=== PATIENT | female | born 1990 | race African-American/Black ===

== ENCOUNTER 2024-12-29 08:21 | Outpatient (AMB) | payer OTHER, SELFPAY ==
--- OUTSIDE RECORDS SUMMARY | 2024-12-29 09:04 | XMS_ITS | Clinical Summary ---
Author Organization 175 [facility] Address 175 [place] [address] Phone Care Team Providers Care Grainer Machine Name Role Phone Tariq Rodriguez MD Primary Care Provider Allergies Active Allergy Reactions Criticality Noted Date Comments Penicillin Anaphylaxis High 10/29/2024 Medications benzonatate (TESSALON) 100 mg capsuleIndicat ions:Acute cough Take 1 capsule (100 mg total) by mouth 3 (three) times a day if needed for cough. Do not crush or chew. 42 capsule 1 5 Active fluticasone propionate (FLONASE) 50 mcg/actuation nasal sprayIndicatio ns:Nasal congestion Administer 2 sprays into each nostril 1 (one) time each day. Shake gently. Before first use, prime pump. After use, clean tip and replace cap. 16 g 5 5 11/09/19 26 Active cetirizine (ZyrTEC) 10 mg tabletIndicati ons:Seasonal allergies Take 1 tablet (10 mg total) by mouth 1 (one) time each day. 30 each 2 5 02/07/20 25 Active nicotine (NICODERM CQ) 14 mg/[address]: Tobacco dependency Place 1 patch on the skin 1 (one) time each day at the same time. 30 each 5 01/07/20 25 Active nicotine polacrilex (COMMIT) 4 mg lozengeIndicat ions:Tobacco dependency Dissolve 1 lozenge (4 mg total) in the mouth every 2 (two) hours if needed for smoking cessation. 30 lozenge 1 5 01/07/20 Active nicotine (NICODERM CQ) 14 mg/[address]: Tobacco dependency Place 1 patch on the skin 1 (one) time each day at the same time. 30 each 2 5 12/08/19 25 Discontinu ed(Duplica te order) nicotine polacrilex (NICORETTE) 4 mg gumIndications :Tobacco dependency Place 1 each (4 mg total) into mouth between cheek and gum if needed for smoking cessation. Place 1 piece of gum (4MG) into mouth and chew as needed for smoking cessation up to 4 times daily 100 each 3 5 12/08/19 Discontinu ed(Duplica te order) Active Problems Problem Noted Date Diagnosed Date Umbilical hernia without obstruction and without gangrene 11/04/2024 History of pulmonary embolus (PE) 10/29/2024 Class 3 severe obesity due t o excess calories without serious comorbidity with body mass index (BMI) of 60.0 to 69.9 in adult ([facility] V24, [facility] V28) 10/29/2024 Hidradenitis suppurativa 10/29/2024 Encounters Date Type Department Care Team Description 12/07/2024 3:45 PM EDT Office Visit Internal Medicine [facility] 175 [facility] [address] [place] [address] Tariq Rodriguez MD Cough, unspecified type (Primary Dx); Smoking greater than 10 pack years; Tobacco dependency; Class 3 severe obesity due to excess calories without serious comorbidity with body mass index (BMI) of 60.0 to 69.9 in adult ([facility] V24, [facility] V28) 11/23/2024 Telephone General Surgery [facility] 175 [facility] [address] [place] [address] Neftaly Emery MD 11/23/2024 Telephone General Surgery [facility] 175 [facility] [address] [place] [phone] Neftaly Emery MD 11/10/2024 Telephone General Surgery [facility] 175 [facility] [address] [place] [address] Neftaly Emery MD 11/08/2024 10:00 AM EDT Office Visit Internal Medicine - [place] 175 [facility] [address] [place] [address] Barry Ayala NP Bronchitis (Primary Dx); Nasal congestion; Acute cough; Tobacco dependency; Seasonal allergies 11/04/2024 11:30 AM EDT Consult General Surgery - [place] [address] [facility] [address] [place] [address] Neftaly Emery MD Umbilical hernia without obstruction and without gangrene (Primary Dx); Central obesity; Tobacco use 10/29/2024 8:30 AM EDT Office Visit Internal Medicine [facility] 175 [facility] [address] [place] [phone] Tariq Rodriguez MD Adult general medical examination (Primary Dx); Other abnormal glucose; Other fatigue; Vitamin D deficiency; Encounter for lipid screening for cardiovascular disease; Class 3 severe obesity due to excess calories without serious comorbidity with body mass index (BMI) of 60.0 to 69.9 in adult (CMS/HCC V24, [facility] V28); History of pulmonary embolus (PE); Hidradenitis suppurativa; Tobacco dependency; Umbilical hernia without obstruction and without gangrene; Prediabetes from Last 3 Months Surgical History Surgery Date Site/Laterality Comments EYE SURGERY PROCEDURE: HISTORICAL EYE SURGERY SECTION 08/05/2023 N/A 2 times, OTHER SURGICAL HISTORY SECTION, LOW TRANSVERSE x2 DILATION AND CURETTAGE OF UTERUS miscarriage DILATION AND CURETTAGE OF UTERUS Medical History Medical History Date Comments Abscess 07/07/2012 DX:Abscess Vaginal discharge 07/07/2012 DX:Vaginal dis charge Numbness and tingling in left hand 07/07/2012 DX:Numbness and tingling in left hand Dog bite(E906.0) 07/07/2012 DX:Dog bite(E90 6.0) Anxiety 07/07/2012 DX:Anxiety Class 3 severe obesity due t o excess calories without serious comorbidity with body mass index (BMI) of 60.0 to 69.9 in adult (CMS/HCC V24, [facility] V28) 10/29/2024 History of pulmonary embolus (PE) 10/29/2024 Hidradenitis suppurativa 10/29/2024 Chronic bronchitis ([facility] V24, [facility] V28) Umbilical hernia Pulmonary embolism ([facility] V24, [facility] V28) Family History Medical History Relation Name Comments Diabetes Aunt 1 panc ca Diabetes Father HLD Father Leukemia Maternal Grandfather Asthma Maternal Grandmother Diabetes Mother Diabetes Paternal Grandfather Diabetes Paternal Grandmother Pancreatic cancer Paternal Grandmother Relation Name Status Comments Aunt 1 Aunt 2 Brother Alive Father Alive Maternal Grandfather Unknown Maternal Grandmother Alive Mother Alive Paternal Grandfather Paternal Grandmother Sister Alive Social History Tobacco Use Types Packs/Day Years Used Date Smoking Tobacco: Every Day Cigarettes 0.3 15.7 Started: 2009 Smokeless Tobacco: Never Tobacco Cessation:Ready to Q uit: Not Asked; Counseling Given: Not Answered Alcohol Use Standard Drinks/Week Comments Yes 0 (1 standard drink = 0.6 oz pur e alcohol) occ Education Answer Date Recorded What is the highest level of school you have completed or the highest degree you have received? High school graduate 10/29/2024 Comments Unknown Sex and Gender Information Value Date Recorded Sex Assigned at Not on file Legal Sex Female 4:47 AM EST Gender Identity Not on file Sexual Orientation Not on file Obstetrics History Last Filed Vital Signs Vital Sign Reading Time Taken Comments Blood Pressure 112/84 12/07/2024 3:34 PM EDT Pulse 86 12/07/2024 3:34 PM EDT Temperature 36.4 C (97.5 F) 12/07/2024 3:34 PM EDT Respiratory Rate - - Oxygen Saturation 97% 12/07/2024 3:34 PM EDT Inhaled Oxygen Concentration - - Weight 137 kg (301 lb) 12/07/2024 3:34 PM EDT Height 149.9 cm (4' 11 ) 12/07/2024 3:34 PM EDT Body Mass Index 60.79 12/07/2024 3:34 PM EDT Plan of Treatment Upcoming Encounters Date Type Department Care Team (Late st Contact Info) Description 05/04/2025 10:00 AM EST Office Visit Internal Medicine - [address] [place] [address] Tariq Rodriguez MD [address] [place] [phone] 06/07/2025 1:30 PM EST Office Visit Bariatric Surgery - [place] [address] [facility] [address] [place] [phone] Alison Parks PA [address] [place] [address] Health Maintenance Due Date Last Done Comments Hepatitis B Vaccines (1 of 3 - 19+ 3-dose series) 2007 Cervical Cancer Screening: Pap Smear 2009 Pneumococcal Vaccine: Pediatrics (0 to 5 Years) and At-Risk Patients (6 to 49 Years) (2 of 2 - PCV) 10/19/2017 10/19/2016 Hepatitis C Screening 03/10/2022 Social Influencers of Health Screening 03/10/2022 Depression Screening 04/07/2024 COVID-19 Vaccine ( season) 2024 Influenza Vaccine (#1) 2024 01/27/2023 Cholesterol Screening (Lipid Panel) 10/29/2029 10/29/2024 DTaP,Tdap,and Td Vaccines (5 - Td or Tdap) 05/23/2033 05/23/2023, 06/15/2022, 09/20/2016, Additional history exists MMR Vaccines Aged Out 08/08/2023 No longer eligi ble based on patient's age to complete this topic HIV Screening Completed 10/29/2024 HIB Vaccines Aged Out No longer eligi ble based on patient's age to complete this topic HPV Vaccines Aged Out No longer eligi ble based on patient's age to complete this topic Hepatitis A Vaccines Aged Out No long er eligible based on patient's age to complete this topic IPV Vaccines Aged Out No longer eligi ble based on patient's age to complete this topic Meningococcal ACWY Vaccine Aged Out N o longer eligible based on patient's age to complete this topic Meningococcal B Vaccine Aged Out No l onger eligible based on patient's age to complete this topic RSV Immunization Patients Under 20 months Aged Out No longer eligible based on patient's age to complete this topic Varicella Vaccines Aged Out No longer eligible based on patient's age to complete this topic Procedures Procedure Name Priority Date/Time Associated Diagnosis Comments CBC WITH AUTO DIFFERENTIAL Routine 10/29/2024 9:17 AM EDT Adult general medical examination Other fatigue CBC AND DIFFERENTIAL Routine 10/29/2024 9:17 AM EDT Adult general medical examination Other fatigue HEMOGLOBIN A1C Routine 10/29/2024 9:17 AM EDT Adult general medical examination Other fatigue VITAMIN B12 Routine 10/29/2024 9:17 AM EDT Adult general medical examination Other fatigue COMPREHENSIVE METABOLIC PANEL Routine 10/29/2024 9:17 AM EDT Adult general medical examination Other fatigue LIPID PANEL WITH REFLEX TO DIRECT LDL Routine 10/29/2024 9:17 AM EDT Adult general medical examination Encounter for lipid screening for cardiovascular disease VITAMIN D 25 HYDROXY Routine 10/29/2024 9:17 AM EDT Adult general medical examination Vitamin D deficiency THYROID STIMULATING HORMONE WITH REFLEX TO FREE T4 AND FREE T3 Routine 10/29/2024 9:17 AM EDT Adult general medical examination Other fatigue HIV 1, 2 ANTIBODY, P24 ANTIGEN WITH REFLEX TO DIFFERENTIATION Routine 10/29/2024 9:17 AM EDT Adult general medical examination from Last 3 Months Results * HIV 1,2 antibody, p24 antigen with reflex to differentiation (10/29/2024 9:17 AM EDT) HIV Combo AB/AG Negative Negative LAB CHEMISTRY METHOD 10/29/2024 12:48 PM EDT [facility] Blood Venous blood specimen / Unknown Venipuncture / Unknown 10/29/2024 9:17 AM EDT 10/29/2024 9:17 AM EDT Narrative [facility] - 10/29/2024 12:48 PM EDT This assay is a 4th generation assay allowing for earlier detection of HIV infection by detecting the presence of the HIV-1 p24 antigen as well as the traditional antibodies to HIV type 1 (including group O) and type 2. Use of a 4th generation assay is the current CDC recommendation for HIV screening. Tariq Rodriguez MD LAB BLOOD ORDERABLES Final Resul t Performing Organization Address City/[facility]/ZIP Co de Phone Number [facility] [address] [place] [address], [place] [phone] * Thyroid stimulating hormone with reflex to free t4 and free t3 (10/29/2024 9:17 AM EDT) [facility] TSH 1.82 0.40 - 4.00 mcIU/mL LAB CHEMISTRY METHOD 10/29/2024 12:09 PM EDT [facility] Blood Venous blood specimen / Unknown Venipuncture / Unknown 10/29/2024 9:17 AM EDT 10/29/2024 9:17 AM EDT Tariq Rodriguez MD LAB BLOOD ORDERABLES Final Resul t Performing Organization Address [facility] Phone Number [facility] [address] [place] [address], [place] [phone] * (ABNORMAL) Lipid panel with reflex to direct LDL (10/29/2024 9:17 AM EDT) Pathologist [facility] [place] Cholesterol 161 0 - 200 mg/dL LAB CHEMISTRY METHOD 10/29/2024 11:44 AM EDT [facility] Triglycerides 172(H) 0 - 150 mg/dL LAB CHEMISTRY METHOD 10/29/2024 11:44 AM EDT [facility] HDL 36(L) >=40 mg/dL LAB CHEMISTRY METHOD 10/29/2024 11:44 AM EDT [facility] LDL Calculated 91 0 - 100 mg/dL LAB CHEMISTRY METHOD 10/29/2024 11:44 AM EDT [facility] VLDL Cholesterol Bernardo 34.4 mg/dL LAB CHEMISTRY METHOD 10/29/2024 11:44 AM EDT [facility] Non HDL Chol. (LDL+VLDL) 125 <145 mg/dL LAB CHEMISTRY METHOD 10/29/2024 11:44 AM EDT [facility] Chol/HDL Ratio 4.5(H) 0.0 - 4.4 LAB CHEMISTRY METHOD 10/29/2024 11:44 AM EDT [facility] Blood Venous blood specimen / Unknown Venipuncture / Unknown 10/29/2024 9:17 AM EDT 10/29/2024 9:17 AM EDT Tariq Rodriguez MD LAB BLOOD ORDERABLES Final Resul t [facility] [address] [place] [address], * (ABNORMAL) CBC auto differential (10/29/2024 9:17 AM EDT) WBC 9.1 4.8 - 10.8 K/mcL LAB HEMETOLOGY METHOD 10/29/2024 10:[address] [facility] RBC 4.80 3.80 - 4.80 M/mcL LAB HEMETOLOGY METHOD 10/29/2024 10:29 AM EDT [facility] Hemoglobin 12.6 11.5 - 16.0 g/dL LAB HEMETOLOGY METHOD 10/29/2024 10:29 AM T [facility] Hematocrit 41.8 35.0 - 47.0 % LAB HEMETOLOGY METHOD 10/29/2024 10:[address] [facility] MCV 86.9 79.0 - 98.0 FL LAB HEMETOLOGY METHOD 10/29/2024 10:[address] [facility] MCH 26.2(L) 27.0 - 32.0 pcg LAB HEMETOLOGY METHOD 10/29/2024 10:[address] [facility] MCHC 30.1(L) 32.0 - 37.0 g/dL LAB HEMETOLOGY METHOD 10/29/2024 10:[address] [facility] RDW 14.4 11.0 - 15.0 % LAB HEMETOLOGY METHOD 10/29/2024 10:[address] [facility] Platelets 438(H) 130 - 400 K/mcL LAB HEMETOLOGY METHOD 10/29/2024 10:[address] [facility] MPV 9.7 7.0 - 11.0 FL LAB HEMETOLOGY METHOD 10/29/2024 10:[address] [facility] NRBC 0.0 <1.0 % LAB HEMETOLOGY METHOD 10/29/2024 10:[address] [facility] NRBC Absolute 0.00 <0.10 K/mcL LAB HEMETOLOGY METHOD 10/29/2024 10:[address] [facility] Neutrophils Relative 53.2 % LAB HEMETOLOGY METHOD 10/29/2024 10:[address] [facility] Lymphocytes Relative 39.5 % LAB HEMETOLOGY METHOD 10/29/2024 10:[address] [facility] Monocytes Relative 4.7 % LAB HEMETOLOGY METHOD 10/29/2024 10:[address] [facility] Eosinophils Relative 1.9 % LAB HEMETOLOGY METHOD 10/29/2024 10:[address] [facility] Basophils Relative 0.4 % LAB HEMETOLOGY METHOD 10/29/2024 10:[address] [facility] Immature Granulocytes Relative 0.3 % LAB HEMETOLOGY METHOD 10/29/2024 10:[address] [facility] Neutrophils Absolute 4.84 1.50 - 7.00 K/mcL LAB HEMETOLOGY METHOD 10/29/2024 10:29 AM EDT [facility] Lymphocytes Absolute 3.60 1.00 - 5.00 K/mcL LAB HEMETOLOGY METHOD 10/29/2024 10:29 AM EDT [facility] Monocytes Absolute 0.43 0.20 - 1.00 K/[facility] LAB HEMETOLOGY METHOD 10/29/2024 10:29 AM EDT [facility] Eosinophils Absolute 0.17 0.00 - 0.50 K/[facility] LAB HEMETOLOGY METHOD 10/29/2024 10:29 AM EDT [facility] Basophils Absolute 0.04 0.00 - 0.20 K/[facility] LAB HEMETOLOGY METHOD 10/29/2024 10:29 AM EDT [facility] Immature Granulocytes Absolute 0.03 0.00 - 0.03 K/[facility] LAB HEMETOLOGY METHOD 10/29/2024 10:29 AM EDT [facility] Blood Venous blood specimen / Unknown Venipuncture / Unknown 10/29/2024 9:17 AM EDT 10/29/2024 9:17 AM EDT Tariq Rodriguez MD LAB BLOOD ORDERABLES Final Resul t [facility] [address] [place] [address], * (ABNORMAL) Vitamin D 25 hydroxy (10/29/2024 9:17 AM EDT) Vit D, 25-Hydroxy 29.1(L) 30.0 - 80.0 ng/mL LAB CHEMISTRY METHOD 10/29/2024 12:08 PM EDT [facility] Blood Venous blood specimen / Unknown Venipuncture / Unknown 10/29/2024 9:17 AM EDT 10/29/2024 9:17 AM EDT Tariq Rodriguez MD LAB BLOOD ORDERABLES Final Resul t [facility] [address] [place] [address], [place] [phone] * Hemoglobin A1c (10/29/2024 9:17 AM EDT) Pathologist [facility] [place] Hemoglobin A1C 6.4 <6.5 % LAB CHEMISTRY METHOD 10/29/2024 12:10 PM EDT [facility] Mean Bld Glu Estim. 137 mg/dL LAB CHEMISTRY METHOD 10/29/2024 12:10 PM EDT [facility] Blood Venous blood specimen / Unknown Venipuncture / Unknown 10/29/2024 9:17 AM EDT 10/29/2024 9:17 AM EDT Tariq Rodriguez MD LAB BLOOD ORDERABLES Final Resul t Performing Organization Address City/[facility] Co de Phone Number [facility] [address] [place] [address], [place] [phone] * Vitamin B12 (10/29/2024 9:17 AM EDT) Pathologist [facility] [place] Vitamin B-12 483 250 - 900 pcg/mL LAB CHEMISTRY METHOD 10/29/2024 11:44 AM EDT [facility] Blood Venous blood specimen / Unknown Venipuncture / Unknown 10/29/2024 9:17 AM EDT 10/29/2024 9:17 AM EDT us Tariq Rodriguez MD LAB BLOOD ORDERABLES Final Resul t Performing Organization Address City/[facility]/ZIP Co de Phone Number [facility] [address] [place] [address], [place] [phone] * (ABNORMAL) Comprehensive metabolic panel (10/29/2024 9:17 AM EDT) Sodium 137 133 - 145 mmol/L LAB CHEMISTRY METHOD 10/29/2024 11:[address] [facility] Potassium 4.9 3.5 - 5.5 mmol/L LAB CHEMISTRY METHOD 10/29/2024 11:[address] [facility] Chloride 105 96 - 110 mmol/L LAB CHEMISTRY METHOD 10/29/2024 11:[address] [facility] CO2 29 21 - 32 mmol/L LAB CHEMISTRY METHOD 10/29/2024 11:[address] [facility] Anion Gap 3 3 - 11 LAB CHEMISTRY METHOD 10/29/2024 11:[address] [facility] Glucose 101(H) 70 - 100 mg/dL LAB CHEMISTRY METHOD 10/29/2024 11:[address] [facility] BUN 11 5 - 25 mg/dL LAB CHEMISTRY METHOD 10/29/2024 11:[address] [facility] Creatinine 0.75 0.50 - 1.10 mg/dL LAB CHEMISTRY METHOD 10/29/2024 11:[address] [facility] eGFR 106 >=60 mL/min/1. 73m2 LAB CHEMISTRY METHOD 10/29/2024 11:[address] [facility] Comment:Calculation based on the Chronic Kidney Disease Epidemiology Collaboration (CKD-EPI) equation refit without adjustment for race. BUN/Creatinine Ratio 14.7 LAB CHEMISTRY METHOD 10/29/2024 11:[address] [facility] Calcium 9.1 8.5 - 10.5 mg/dL LAB CHEMISTRY METHOD 10/29/2024 11:[address] [facility] AST (SGOT) 20 10 - 42 unit/L LAB CHEMISTRY METHOD 10/29/2024 11:[address] [facility] ALT (SGPT) 45 10 - 60 unit/L LAB CHEMISTRY METHOD 10/29/2024 11:44 AM EDT [facility] Alkaline Phosphatase 84 42 - 121 unit/L LAB CHEMISTRY METHOD 10/29/2024 11:44 AM EDT [facility] Total Protein 7.3 6.0 - 8.0 g/dL LAB CHEMISTRY METHOD 10/29/2024 11:44 AM EDT [facility] Albumin 3.3 3.2 - 5.0 g/dL LAB CHEMISTRY METHOD 10/29/2024 11:44 AM EDT [facility] Total Bilirubin 0.3 0.0 - 1.4 mg/dL LAB CHEMISTRY METHOD 10/29/2024 11:44 AM EDT [facility] Blood Venous blood specimen / Unknown Venipuncture / Unknown 10/29/2024 9:17 AM EDT 10/29/2024 9:17 AM EDT Tariq Rodriguez MD LAB BLOOD ORDERABLES Final Resul t [facility] [address] [place] [address], from Last 3 Months Insurance [facility] [employer] Care Teams Grainer Machine Relationship Specialty Start Date End Date Tariq Rodriguez MD [address] [place] [phone] PCP - General Internal Medicine 10/19/24
--- OUTSIDE RECORDS SUMMARY | 2024-12-29 09:04 | XMS_ITS | Encounter Summary ---
Author Organization [employer] Address [address] [place] [address] Care Team Providers Care Mental Health Consultant Name Role Phone Tariq Rodriguez MD Primary Care Provider [phone] Encounter Details Date Type Department Care Team ([facility] Contact Info) Description 11/23/2024 Telephone General Surgery [address] [place] [address] Neftaly Emery MD [address] [place] [phone] Social History Tobacco Use Types Packs/Day Years Used Date Smoking Tobacco: Every Day Cigarettes 0.3 15.7 Started: 2009 Smokeless Tobacco: Never Alcohol Use Standard Drinks/Week Comments Yes 0 [...] on file Sexual Orientation Not on file documented as of this encounter Progress Notes * Gina Harris - 11/30/2024 9:40 AM EDT Spoke with patient. She will call back to reschedule when her mother is available to help her aftersurgery. * Gina Harris - 11/24/2024 10:29 AM EDT Tried calling patient again to reschedule her surgery - phone still not working. * Gina Harris - 11/23/2024 1:56 PM EDT Patient canceled her surgery for 11/[address] Emery. Tried calling her today x4 and unable to leave message keep getting quick busy like phone is disconnected. documented in this encounter Plan of Treatment Upcoming Encounters Date Type Department Care Team (Late st Contact Info) Description 05/04/2025 10:00 AM EST Office Visit Internal Medicine - [place] 175 [facility] [address] [place] [phone] Tariq Rodriguez MD 175 [facility] [address] [place] [phone] 06/07/2025 1:30 PM EST Office Visit Bariatric Surgery - [place] 175 [facility] [address] [place] [phone] Alison Parks PA [address] [place] [phone] documented as of this encounter Visit Diagnoses Not on filedocumented in this encounter Care Teams Mental Health Consultant Relationship Specialty Start Date End Date Tariq Rodriguez MD [address] [phone] PCP - General Internal Medicine 10/19/24 documented as of this encounter
--- NOTE | 2024-12-29 09:46 | MHC.OFFVISWM ---
VS Expanded 12/29/24 09:57 Height 4 ft 10 in Weight 295 lb BMI 61.6 Body Fat % 45.4 Body Fat Mass 133.8 Fat Free Mass 161.2 Visceral Fat Rating 19 Body Water % 39.2 Body Water Mass 115.6 Basal Metabolic Rate/Score 2,302 Intake Visit Reasons: [employer] BMI 61.7 Allergies Penicillins Allergy (Severe, Verified 12/29/24 09:47) Anaphylaxis Medication List - Last Reconciled 12/29/24 by Ezekiel Lan MD No Known Home Meds HPI HPI [employer] BMI 61.7: Details: Start time: 9.45am, End time: 10.30am ?I spent 40 minutes speaking with the patient on the phone plus an additional 5 minutes reviewing and updating records for a total of 45 minutes HPI Comments Details: Previous weight loss efforts: self diet and exercise Wakes up: 7am, Sleeps: 11pm Breakfast: occasionally at 9am (Bagel, eggs, bread) Lunch: occasionally at 1-2pm (fast food, pasta) Dinner: 9pm (rice, beans, chicken, pork) Snacks:1-2 snacks before dinner (nuts) Exercise: none Beverages: Coffee (1 cup/d with cream and mocha), Tea: none, Soda: none now, Juice: some, ETOH: none PFSH Medical History (Updated 12/29/24 @ 10:00 by Ezekiel Lan MD) Daytime somnolence Morbid obesity Surgical History (Updated 12/17/24 @ 13:17 by Nuria Prajapati CMA) Hx of eye surgery Hx of section Family History (Updated 12/17/24 @ 11:17 by Nuria Prajapati CMA) Mother Diabetes Father Diabetes High cholesterol Son No problems noted. Son No problems noted. Social History (Updated 12/17/24 @ 13:18 by Nuria Prajapati CMA) Alcohol intake: current Alcohol intake frequency: holidays/special occasions only Patient Tobacco Use Status: Current someday Tobacco user Tobacco use type: Cigarette Cigarettes Per Day: 5 Substance Use Type: Marijuana Telehealth Telehealth Telehealth Platform: Telephone Location of provider rendering services: practice address Location of patient: address on file Patient Identification confirmed using: Name, : Yes Telehealth method: voice only Patient verbally consented to treatment: Yes Patient verbally consented to billing insurance company: Yes Patient informed of any privacy concerns related to visit: Yes Minutes spent on Phone/Video with Pt.: 45 Assessment & Plan Assessment & Plan (1) Morbid obesity: Code(s): E66.01 - Morbid (severe) obesity due to excess calories Category: Medical Plan: 1.? Plan for lap sleeve gastrectomy. If diaphragmatic or ventral hernias are present at time of surgery, these will be repaired laparoscopically as well. I emphasized the importance of close follow-up, adherence to instructions and good communication. The surgery does not replace the need to change your lifestlyle which is the cause of the obesity problem. The surgery provides the motivation to try again to change your lifestyle, it reduces the appetite and make the transition to a better lifestyle easier and doubles the amount of weight you would lose compared to doing the lifestyle change without the surgery. You will need to be on a liquid diet with protein shakes for 2 weeks before surgery to maximize weight loss and boost your nutritional status to recover better from surgery and also for the first two weeks after surgery to let the stomach heal before we introduce other foods. After the first 2 weeks we will introduce protein bars and soft foods like scrambled eggs, cottage cheese and yogurt and after the 6th week will introduce meat, fish and cooked vegetables in small amounts. Over time you should be able to eat everything in small amounts. Side effects like nausea, vomiting, heartburn or abdominal pain are not common in the practice unless you are not following in the practice. This operation requires lifetime commitment to following in our practice and communication with me. You will much less weight and experience side effects if you don?t communicate or not following in the practice. Complications are rare and in our practice is about 1/10 of the national average. However, you can develop bleeding that may require transfusion (hasn?t happened for year in the practice), you may from complications (we did not have any deaths in the practice) and infections. Infections are usually a result of breakdown in communication or not understanding or following directions correctly. They are difficult to treat, they can happen during the first 6 weeks, they may require to be in the hospital for weeks or even months, not being able to eat by mouth and you may have drains and surgeries to try and correct the issue. Other risks and complications include possible conversion to an open procedure, leaks, small bowel obstruction, blood clots, cardiac, or pulmonary complications, as nursing home complications such as ulcers, insufficient weight loss and vitamin deficiencies. 1.?Nutritional counseling. Start with one premade PREMIER protein (buy at [employer] or [employer] shake (8oz of Premier) at 8am-10am, one protein bar (Fit Crunch protein bar, buy at [employer] or [employer]) at 11am-1pm, another premade protein shake (8oz of Premier ) at 2pm-4pm, another [employer] Crunch protein bar at 5pm-7pm,? dinner at 8pm (10 forks of protein and 10 forks of salad/vegetables) and another HALF [employer] protein bar at 10pm-11pm if you are hungry. So you do 2 protein shakes, 2 to 2.5 protein bars and one meal per day. Meal to include lean meat (beef, fish, pork, turkey, chicken), or icelandic yogurt, or egg whites, or beans with a salad with olive oil and fruits (berries, pears, apples, kiwi). Avoid salt, breads, potatoes, rice, pasta, desserts. 3. Each shake would be drunk slowly, like coffee in a period of 2 hours. 4. Cut each bar in 4 pieces and eat each piece in 30min ?to make each bar last 2 hours. 5. I emphasized the importance of measuring accurately the food portion and measure it when serving the food in plate 6. The meal portions include 10 full-size forks of meat and 10 full-size forks of salad. You always eat the meat portion but you can replace up to 5 forks for salad/vegetables with rice, potatoes or pasta, or a fruit ?if you like. The less you do it the better weight loss will be. 7. One full-size fork is what it can be scooped on the fork without falling aside and not what can be bit with the fork. Use regular forks like those you find in a typical restaurant. 8.? Please buy the body composition scale we discussed and send me weight measurements as soon as possible and then once a week. Always include your diet and exercise plan. 9. The best choice would be to purchase a stationary bike at home that can track calories. If you get one, please start stationary bike at a resistance level of 4.0 Increase level by 1.0 every 3 min to a max level of 10.0. Stay at this level for 3 min and then return to level 4.0 and repeat same steps until 300 calories are burned. Goal is to burn 2000 calories per week on exercise 10.?It is important of avoiding and for at least 18 months postoperatively and has been discussed at the infosession. 11. Goal is to lose at least 1.5-2lbs per week 12. Goal to lose at least 10% of your weight before surgery, which is about 30lbs. Ultimate weight goal: 265lbs before surgery 13. Please follow the diet plan exactly without any change. If you don't like something about the plan or you feel hungry you need to communicate with me so I can help you revise the plan. You should not change the plan yourself 14. To be scheduled for EGD to assess the stomach's anatomy. The possibility of biopsies was discussed. Patient needs to avoid use of NSAIDs and aspirin for 1 week prior to EGD. You must be on liquids only the day before your endoscopy. Risks of perforation and bleeding was discussed with the patient. This will be an outpatient procedure with IV sedation. 15. Start Phentermine daily at 10am. We discussed the potential side-effects of the Phentermine such as irritability, dry mouth, difficulty sleeping, dizziness, numbness in feet and high blood pressure. I asked her to get a blood pressure monitor and measure the blood pressure daily in the morning and evening. She needs to send the blood pressure readings daily and to call the office for blood pressure over 140/80 and she understands that. Orders: Orders Insulin Today E66.01 - Morbid (severe) obesity due to excess calories, R40.0 - Somnolence Hemoglobin A1c Today E66.01 - Morbid (severe) obesity due to excess calories, R40.0 - Somnolence Complete Blood Count Auto Diff Today E66.01 - Morbid (severe) obesity due to excess calories, R40.0 - Somnolence Lipid Panel Today E66.01 - Morbid (severe) obesity due to excess calories, R40.0 - Somnolence Comprehensive Met. Panel Today E66.01 - Morbid (severe) obesity due to excess calories, R40.0 - Somnolence Vitamin B12 and Folate Today E66.01 - Morbid (severe) obesity due to excess calories, R40.0 - Somnolence C Reactive Protein Today E66.01 - Morbid (severe) obesity due to excess calories, R40.0 - Somnolence Vitamin B1 Today E66.01 - Morbid (severe) obesity due to excess calories, R40.0 - Somnolence Vitamin A Today E66.01 - Morbid (severe) obesity due to excess calories, R40.0 - Somnolence Ferritin Today E66.01 - Morbid (severe) obesity due to excess calories, R40.0 - Somnolence US abdomen comp w elastography Today E66.01 - Morbid (severe) obesity due to excess calories, R40.0 - Somnolence H Pylori Breath Test Today E66.01 - Morbid (severe) obesity due to excess calories, R40.0 - Somnolence IRON PROFILE Today E66.01 - Morbid (severe) obesity due to excess calories, R40.0 - Somnolence Zinc Today E66.01 - Morbid (severe) obesity due to excess calories, R40.0 - Somnolence TSH reflex Free T4 Today E66.01 - Morbid (severe) obesity due to excess calories, R40.0 - Somnolence Vitamin D 25-OH Total Today E66.01 - Morbid (severe) obesity due to excess calories, R40.0 - Somnolence XR chest 2V Today E66.01 - Morbid (severe) obesity due to excess calories, R40.0 - Somnolence ECG 12 lead EKG Today E66.01 - Morbid (severe) obesity due to excess calories, R40.0 - Somnolence FL upper GI w air Today E66.01 - Morbid (severe) obesity due to excess calories, R40.0 - Somnolence RT home sleep study Today E66.01 - Morbid (severe) obesity due to excess calories, R40.0 - Somnolence Referrals Nutrition/Dietitian Referral E66.01 - Morbid (severe) obesity due to excess calories, R40.0 - Somnolence Behavioral Health Referral E66.01 - Morbid (severe) obesity due to excess calories, R40.0 - Somnolence Medications: New phentermine must administer 30 minutes before or 1-2 hours after breakfast 37.5 mg PO DAILY 30 caps 0RF E66.01 - Morbid (severe) obesity due to excess calories
[2024-12-29 09:57] VITALS: BMI 61.6
== END 2024-12-29 10:31 | disposition home or self-care (01) ==
LOC: HO.HBS 08:21
PROVIDERS: PCP Student in an Organized Health Care Education/Training Program; Visit Provider Surgery
DX: E66.01 Morbid (severe) obesity due to excess calories (principal)
CPT/HCPCS: 99204